=== PATIENT | male | born 1945 | race Caucasian/White ===

== ENCOUNTER 2022-10-26 18:46 | Inpatient (IN) | payer MEDICARE, BC ==
[2022-10-26] MEDS ORDERED: Ondansetron PF 4 MG/2 ML Vial ONE (19:23)
[2022-10-26] MEDS ORDERED: Mag-Al 1200 mg/1200 mg/30 ML UDCUP ONE (19:23)
[2022-10-26 19:25] LABS: #Basophils 0.1 thou/uL (0.0-0.2); #Eosinphils 0.2 thou/uL (0.0-0.7); #Lymphocytes 1.5 thou/uL (1.20-3.40); #Monocytes 0.8 thou/uL (0.11-0.59); #Neutrophils 5.9 thou/uL (1.40-6.50); %Basophils 0.9 % (0.0-1.0); %Eosinophils 2.1 % (0.0-10.0); %Lymphocytes 17.1 % (21.0-51.0); %Monocytes 9.9 % (0.0-10.0); Hemoglobin 12.9 g/dL (14.0-18.0); Mean Corpuscular HGB CONC 34.2 g/dL (32.0-36.0); Mean Corpuscular Hemoglobin 32.9 pg (27.0-31.0); Mean Corpuscular Volume 96.2 fl (78.0-98.0); Mean Platelet Volume 8.1 fL (7.4-10.4); Platelet Count 143 10x3/uL (130-400); White Blood Cell (WBC) Count 8.5 10x3/uL (4.8-10.8)
[2022-10-26 19:45] LABS: INR-International Normal Ratio 1.3; Prothrombin Time 16.2 sec (12.0-14.7)
[2022-10-26 19:51] LABS: ALT (SGPT) 47 U/L (8-55); AST (SGOT) 76 U/L (5-34); Albumin 4.1 g/dL (3.4-4.8); Alkaline Phosphatase 67 U/L (40-110); Anion Gap 15 mmol/L (10-20); BUN (Urea Nitrogen) 26 mg/dL (8.4-25.7); Bilirubin, Total 0.9 mg/dL (0.2-1.2); Calc. Creatinine Clearance 0 mL/min (70-130); Calcium 8.6 mg/dL (7.8-10.44); Carbon Dioxide 17 mmol/L (23-31); Chloride 106 mmol/L (98-107); Estimated GFR 45; Globulin 2.8 g/dL (2.4-3.5); Glucose 135 mg/dL (83-110); Magnesium 2.6 mg/dL (1.6-2.6); Protein, Total 6.9 g/dL (5.8-8.1); Sodium 133 mmol/L (136-145)
[2022-10-26 20:18] LABS: CKMB 8.6 ng/mL (0-6.6)
[2022-10-26] MEDS ORDERED: Ondansetron PF 4 MG/2 ML Vial IVP PRN (22:07)
[2022-10-26] MEDS ORDERED: Acetaminophen 325 MG TAB PO PRN (22:07)
[2022-10-26] MEDS ORDERED: Nitroglycerin 0.4 MG TAB (25 Tab Bottle) SL PRN (22:07)
[2022-10-26] MEDS ORDERED: Ondansetron ODT 4 MG TAB PO PRN (22:07)
[2022-10-26 22:26] VITALS: BMI 25.9
[2022-10-26 23:53] LABS: Troponin I 19.036 ng/mL (< 0.028)
[2022-10-27 05:12] LABS: #Lymphocytes 1.2 thou/uL (1.20-3.40); #Monocytes 0.8 thou/uL (0.11-0.59); #Neutrophils 4.5 thou/uL (1.40-6.50); %Basophils 0.4 % (0.0-1.0); %Eosinophils 0.2 % (0.0-10.0); %Lymphocytes 18.5 % (21.0-51.0); %Monocytes 11.7 % (0.0-10.0); %Neutrophils 69.3 % (42.0-75.0); Hemoglobin 11.6 g/dL (14.0-18.0); Mean Corpuscular HGB CONC 32.7 g/dL (32.0-36.0); Mean Corpuscular Hemoglobin 31.7 pg (27.0-31.0); Mean Corpuscular Volume 96.9 fl (78.0-98.0); Mean Platelet Volume 8.5 fL (7.4-10.4); Platelet Count 134 10x3/uL (130-400); Red Blood Cell (RBC) Count 3.65 mill/uL (4.70-6.10); White Blood Cell (WBC) Count 6.5 10x3/uL (4.8-10.8)
[2022-10-27 05:42] LABS: Anion Gap 14 mmol/L (10-20); BUN (Urea Nitrogen) 29 mg/dL (8.4-25.7); Calc. Creatinine Clearance 46 mL/min (70-130); Calcium 8.2 mg/dL (7.8-10.44); Carbon Dioxide 14 mmol/L (23-31); Chloride 109 mmol/L (98-107); Estimated GFR 49; Glucose 95 mg/dL (83-110); Potassium 4.6 mmol/L (3.5-5.1); Sodium 132 mmol/L (136-145)
[2022-10-27 05:46] LABS: Troponin I 32.631 ng/mL (< 0.028)
[2022-10-27] MEDS ORDERED: Levothyroxine Sodium 88 MCG TAB PO SCH (08:30)
[2022-10-27] MEDS ORDERED: Famotidine/PF 20 mg/2ml Vial SLOW IVP SCH (09:00)
[2022-10-27] MEDS ORDERED: Sotalol HCl 80 MG TAB PO SCH (09:00)
[2022-10-27] MEDS: Ezetimibe 10 MG TAB PO SCH (09:15)
[2022-10-27] MEDS: Famotidine 20 MG TAB PO SCH (09:15)
[2022-10-27] MEDS: Clopidogrel Bisulfate 75 MG TAB PO SCH (09:15)
[2022-10-27] MEDS: Valsartan 80 MG TAB PO SCH ×2 (09:15→21:24)
[2022-10-27] MEDS: Apixaban 5 MG TAB PO SCH (21:28)
[2022-10-27] MEDS: Atorvastatin Calcium 40 MG TAB PO SCH (21:28)
[2022-10-27] MEDS: Melatonin 3 MG TAB PO PRN (21:38)
[2022-10-28] MEDS: Levothyroxine Sodium 88 MCG TAB PO SCH (04:39)
[2022-10-28 08:31] LABS: Anion Gap 12 mmol/L (10-20); BUN (Urea Nitrogen) 31 mg/dL (8.4-25.7); Calc. Creatinine Clearance 43 mL/min (70-130); Calcium 8.9 mg/dL (7.8-10.44); Carbon Dioxide 20 mmol/L (23-31); Chloride 105 mmol/L (98-107); Estimated GFR 47; Glucose 105 mg/dL (83-110); Potassium 4.4 mmol/L (3.5-5.1); Sodium 133 mmol/L (136-145)
[2022-10-28] MEDS: Ezetimibe 10 MG TAB PO SCH (10:01)
[2022-10-28] MEDS: Apixaban 5 MG TAB PO SCH ×2 (10:01→20:18)
[2022-10-28] MEDS: Famotidine 20 MG TAB PO SCH (10:01)
[2022-10-28] MEDS: Clopidogrel Bisulfate 75 MG TAB PO SCH (10:01)
[2022-10-28] MEDS: Valsartan 80 MG TAB PO SCH ×2 (10:01→20:18)
[2022-10-28] MEDS: Melatonin 3 MG TAB PO PRN (20:18)
[2022-10-28] MEDS: Atorvastatin Calcium 40 MG TAB PO SCH (20:18)
[2022-10-29] MEDS: Levothyroxine Sodium 88 MCG TAB PO SCH (05:32)
[2022-10-29] MEDS: Clopidogrel Bisulfate 75 MG TAB PO SCH (09:02)
[2022-10-29] MEDS: Famotidine 20 MG TAB PO SCH (09:02)
[2022-10-29] MEDS: Apixaban 5 MG TAB PO SCH (09:02)
[2022-10-29] MEDS: Valsartan 80 MG TAB PO SCH (09:02)
[2022-10-29] MEDS: Ezetimibe 10 MG TAB PO SCH (09:02)
[2022-10-29 11:48] VITALS: BP 144/80; TEMP 98.2
== END 2022-10-29 15:17 | disposition home or self-care (01) | DRG 281 ==
LOC: ERS 18:46 → 2NO 20:32
PROVIDERS: ADMIT Internal Medicine; ATTEND Internal Medicine
PROC: 4B02XSZ Measurement of Cardiac Pacemaker, External Approach (ICD-10-PCS; principal; 2022-10-29)
DX: I47.1 Supraventricular tachycardia (principal); I21.A1 Myocardial infarction type 2; I50.22 Chronic systolic (congestive) heart failure; I25.10 Atherosclerotic heart disease of native coronary artery without angina pectoris; E03.9 Hypothyroidism, unspecified; I11.0 Hypertensive heart disease with heart failure; I48.91 Unspecified atrial fibrillation; E78.5 Hyperlipidemia, unspecified; I45.10 Unspecified right bundle-branch block; I95.89 Other hypotension; I49.5 Sick sinus syndrome; I25.5 Ischemic cardiomyopathy; I48.92 Unspecified atrial flutter; Z95.1 Presence of aortocoronary bypass graft; Z95.0 Presence of cardiac pacemaker; Z79.899 Other long term (current) drug therapy; Z79.01 Long term (current) use of anticoagulants; Z79.02 Long term (current) use of antithrombotics/antiplatelets; Z79.890 Hormone replacement therapy
CPT/HCPCS: 36415; 71045; 80048; 80053; 82553; 83735; 83880; 84484; 85025; 85610; 85730; 93005; 93010; 93306; 94760; J1650; J2405